=== PATIENT | female | born 1985 | race Caucasian/White ===

== ENCOUNTER → 2020-01-03 12:56 | Outpatient (CLI) | payer OTHER, SELFPAY ==
[2020-01-03 14:19] LABS: Add Manual Diff / Slide Review NO; Basophils Absolute Auto 0 /uL (0-100); Basophils Percent Auto 0.3 % (0-2); Eosinophils Absolute Auto 100 /uL (0-450); Eosinophils Percent Auto 0.9 % (2-4); Hematocrit 41.6 % (36-46); Hemoglobin 14.4 g/dL (12.0-16.0); Lymphocytes Absolute Auto 2500 /uL (1100-4500); Mean Corpuscular HGB Conc 34.6 % (30-36); Mean Corpuscular Hemoglobin 31.7 PG (26-34); Mean Corpuscular Volume 91.7 fL (80-100); Monocytes Absolute Auto 1400 /uL (0-900); Monocytes Percent Auto 13.5 % (3-14); Neutrophils Absolute Auto 6300 /uL (1500-7000); Neutrophils Percent Auto 61.3 % (50-75); Platelet Count 285 X10^3/uL (150-400); Red Blood Cell Count 4.54 X10^6/uL (4.0-5.2); Red Cell Distribution Width 12.7 % (11.6-14.8); White Blood Cell Count 10.4 X10^3/uL (4.5-11.0)
[2020-01-03 16:02] LABS: Free T4, Direct Thyroxine 0.99 ng/dL (0.78-2.19)
[2020-01-03 16:16] LABS: Thyroid Stimulating Hormone 5.26 uIU/mL (0.47-4.68)
[2020-01-03 16:30] LABS: Hepatitis B Surface Antigen NEGATIVE s/c (NEGATIVE); Rubella Antibody IgG 51.2 IU/mL (>15)
[2020-01-03 16:49] LABS: HIV 1 & 2 Ab/Ag 4th Gen Combo NEGATIVE (NEGATIVE); Hep C Virus Ab w/Reflex Quant NEGATIVE s/c (NEGATIVE)
[2020-01-03 17:38] LABS: Appearance Urine UA SL CLOUDY; Bilirubin Urine UA NEGATIVE (NEGATIVE); Color Urine UA YELLOW; Glucose Urine UA NEGATIVE (Negative); Ketones Urine UA NEGATIVE (NEGATIVE); Leukocyte Esterase Urine UA NEGATIVE (NEGATIVE); Nitrite Urine UA NEGATIVE (Negative); Occult Blood Urine UA 2+ (Negative); Protein Urine UA NEGATIVE (Negative); Specific Gravity Urine UA >=1.030 (1.000-1.035); Urobilinogen Urine UA 0.2 E.U./dL (0.2)
[2020-01-03 18:19] LABS: Bacteria Urine Moderate (10-30); RBC Urine 0-1/HPF (0-5/HPF); Squamous Epithelial Cell Urine 10-30 /HPF (0-5/HPF); WBC Urine 1-5/HPF (0-5/HPF)
[2020-01-04 04:39] LABS: RPR Screen Non Reactive (Non Reactive)
[2020-01-04 07:40] LABS: Varicella IgG Antibody 1944 index (Immune >165)
== END ==
PROVIDERS: PCP Specialist; Referring Provider Specialist; Visit Provider Specialist
DX: Z34.01 Encounter for supervision of normal first pregnancy, first trimester (principal); E03.9 Hypothyroidism, unspecified
CPT/HCPCS: 36415; 80055; 81003; 81015; 84439; 84443; 86787; 86803; 86850; 86900; 86901; 87086; 87389

== ENCOUNTER → 2020-03-13 11:00 | Outpatient (CLI) | payer OTHER, MEDICAID, SELFPAY ==
[2020-03-13 13:41] LABS: Free T4, Direct Thyroxine 0.98 ng/dL (0.78-2.19)
[2020-03-13 13:55] LABS: Thyroid Stimulating Hormone 1.49 uIU/mL (0.47-4.68)
[2020-03-15 21:16] LABS: AFP, Serum 53.8 ng/mL (.); Calc Gestational Age Ultrasound (.); Estriol, Free 1.92 ng/mL (.); Inhibin A, Dimeric 271.12 pg/mL (.); Inhibin A, MoM 1.59 (.); Maternal Ethnicity Caucasian (.); Maternal Weight 139 lbs (.); Number of Fetuses No (.); OSBR Risk 1 IN 4034 (.); Results Report (.); Test Results *Screen Negative* (.); hCG, MoM 2.66 (.); hCG, Serum 94934 mIU/mL (.)
== END ==
PROVIDERS: PCP Specialist; Referring Provider Specialist; Visit Provider Specialist
DX: Z34.02 Encounter for supervision of normal first pregnancy, second trimester (principal); E03.9 Hypothyroidism, unspecified; Z3A.16 16 weeks gestation of pregnancy
CPT/HCPCS: 36415; 82105; 82677; 84439; 84443; 84702; 86336

== ENCOUNTER → 2020-04-10 12:15 | Outpatient (CLI) | payer OTHER, MEDICAID, SELFPAY ==
--- NOTE | 2020-04-10 12:16 | DI.US.S_ITS ---
PROCEDURE: US OB >= 14 WEEKS FETUS INDICATIONS: 20 week anatomy scan OUTSIDE/PRIOR DATING DATA: Last menstrual period (LMP): 11/09/19 . LMP-based estimated date of delivery (MICHELLE): 08/15/20 . First dating scan (date and location): 01/03/[address] Garcia . Estimated date of delivery (MICHELLE) from first dating scan: 08/22/20 . TECHNIQUE: Real-time scanning was performed of the fetus, with image documentation and biometric measurements. Endovaginal scanning: Not needed COMPARISON: [facility], , OB >= 14 WEEKS FETUS, 03/13/2020, 10:51. [facility], , OB >= 14 WEEKS FETUS, 01/03/2020, 12:38. FINDINGS: General: A single living intrauterine gestation is present. Presentation: Vertex Placenta: Placental position is anterior , without previa. Amniotic fluid index: 12.2 cm, normal range is 5-24 cm. heart rate: 131 beats per minute. Maternal cervical canal: 4.3 cm long. Normal lower limit is 2.5 cm. biometrics: Biparietal diameter: 5.1 cm, 21 weeks 3 days Head circumference: 18.3 cm, 20 weeks 5 days Abdominal circumference: 16.7 cm, 21 weeks 5 days Femur length: 3.6 cm, 21 weeks 4 days Estimated gestational age from initial scan: 20 weeks 6 days Composite gestational age from present scan: 21 weeks 3 days Estimated weight and percentile: 429 g, 79th percentile Measurement variability for biometric dating: +/- 7 days from 14 weeks to 15 weeks 6 days gestation, +/- 10 days from 16 weeks to 21 weeks 6 days gestation, +/- 2 weeks from 22 weeks to 27 weeks 6 days gestation, +/- 3 weeks for 28 weeks gestation or later. weight reference: 4500 g or EFW >90/95% is considered macrosomia or large for gestational age. EFW <10% is small for gestational age. EFW 5% or less is considered intra-uterine growth restriction. Anatomic survey: Neuro: Ventricles are non-dilated at less than 10 mm. Cisterna magna is normal at 3-11 mm. Cerebellum is normal in size and morphology. Nuchal skin fold: Normal at less than 6 mm between 14-21 weeks gestational age. Face: Nose and lips, facial profile are normal. Spine: No evidence for spina bifida. Heart: 4-chambered heart is present, with normal ventricular outflow tracts. Diaphragm: Diaphragm is intact. Stomach: Left-sided stomach is present. Kidneys: No hydronephrosis. Normal is less than 5 mm in 2nd trimester, less than 7 mm in 3rd trimester. Cord: 3-vessel cord has orthotopic insertion. Bladder: Normal in size. Extremities: All 4 extremities identified. IMPRESSION: Appropriate interval growth, no anomaly seen. The delivery date is projected to be centered on 08/22/20. Dictated by: Conor Kowalski M.D. on 04/10/2020 at 14:14 Approved by: Conor Kowalski M.D. on 04/10/2020 at 14:17
== END ==
PROVIDERS: PCP Physician Assistant; Referring Provider Specialist; Visit Provider Specialist
DX: Z34.02 Encounter for supervision of normal first pregnancy, second trimester (principal); Z3A.21 21 weeks gestation of pregnancy
CPT/HCPCS: 76811

== ENCOUNTER → 2020-05-15 10:50 | Outpatient (CLI) | payer OTHER, MEDICAID, SELFPAY ==
[2020-05-15 12:52] LABS: Hematocrit 34.7 % (36-46); Hemoglobin 11.7 g/dL (12.0-16.0)
[2020-05-15 13:20] LABS: GTT (PREG) 1 Hour PP 50gm Dose 117 mg/dL (76-139)
[2020-05-15 13:31] LABS: Free T4, Direct Thyroxine 0.59 ng/dL (0.78-2.19)
[2020-05-15 13:45] LABS: Thyroid Stimulating Hormone 2.01 uIU/mL (0.47-4.68)
== END ==
PROVIDERS: PCP Physician Assistant; Referring Provider Specialist; Visit Provider Specialist
DX: Z34.02 Encounter for supervision of normal first pregnancy, second trimester (principal); E03.9 Hypothyroidism, unspecified; Z3A.25 25 weeks gestation of pregnancy
CPT/HCPCS: 36415; 82950; 84439; 84443; 85014; 85018

== ENCOUNTER 2020-07-18 12:07 | Observation (INO) | payer OTHER, MEDICAID, SELFPAY ==
[2020-07-18 13:47] LABS: Appearance Urine UA CLEAR; Bilirubin Urine UA NEGATIVE (NEGATIVE); Color Urine UA YELLOW; Glucose Urine UA NEGATIVE (Negative); Ketones Urine UA NEGATIVE (NEGATIVE); Leukocyte Esterase Urine UA NEGATIVE (NEGATIVE); Nitrite Urine UA NEGATIVE (Negative); Occult Blood Urine UA TRACE-INTACT (Negative); Protein Urine UA NEGATIVE (Negative); Specific Gravity Urine UA 1.015 (1.000-1.035); Urobilinogen Urine UA 0.2 E.U./dL (0.2); WBC Urine None Seen (0-5/HPF)
[2020-07-18 14:02] LABS: Amorphous Sediment Urine 1+; Bacteria Urine Occasional (0-1); Culture Indicated Urine Cult Not Indicated; RBC Urine 0-1/HPF (0-5/HPF); Squamous Epithelial Cell Urine 1-5 /HPF (0-5/HPF)
[2020-07-18] MEDS: LACTATED RINGERS 1,000 ML 1000 ML IV (14:24)
[2020-07-18] MEDS: NIFEdipine 10 MG CAPSULE PO ×4 (14:24→15:33)
--- NOTE | 2020-07-18 16:12 | P.TNLD_ITS ---
Visit Information Visit Information Date of evaluation: 07/18/20 Primary OB Provider: Ofelia Garcia Reason for Evaluation: Yes pre-term labor Comments/Additional reasons for admission: Patient is 35 week 1 para 0 who comes in complaining of contractions and possible rupture membranes. Vital Signs Vital Signs: Blood pressure 124/49, pulse 77, temperature 98.6? [facility] Medical History (Updated 07/18/20 @ 17:21 by Ofelia Garcia MD) 35 weeks gestation of Abnormal Pap smear of cervix (~2013) Acute recurrent streptococcal tonsillitis (~2018) Anxiety Chicken pox HSV-1 (herpes simplex virus 1) infection Hypothyroidism (acquired) Kidney stone (~2014) Sprain of medial collateral ligament of left knee, initial encounter (~2019) Surgical History (Updated 02/05/20 @ 19:56 by Estela Heath) Anesthesia H/O colposcopy with cervical biopsy (~2013) H/O wisdom tooth extraction History of laparoscopic cholecystectomy (~2012) Family History (Updated 02/05/20 @ 19:58 by Estela Heath) Mother Diabetes mellitus Depression AA (alcohol abuse) Smoker Hypothyroid Hypertension Mental health problem Father No problems noted. Grandfather H/O heart bypass surgery Diabetes mellitus Grandmother Cancer Breast cancer Grandfather Blind Diabetes mellitus History of heart disease Grandmother No problems noted. Family/Other Hypothyroid Family/Other Breast cancer Cancer Social History marital status: (Boyfriend of X 1 year) number of children: 0 household members: significant other lives independently: Yes pets and animals: Yes (X 3 cats : aware now) education level: high school occupational status: employed (hurt her knee and currently working part-time) current occupational exposures/hazards: Yes Previous occupational history: [employer] needs: No Smoking Status: Former smoker (Cigarettes : quit age 21) Tobacco: How many years used: 5 second hand exposure: No alcohol intake: never (stopped with gallbladder issues ) substance use type: does not use and marijuana (recreational use : stopped with diagnosis) Review of Systems Review of Systems Narrative: Patient has been on and off having cramping that worsened today. She had a gush of fluid that she was unclear if it was leakage of fluid. No bleeding. No headaches. Good movement. ROS: Yes All systems reviewed with the patient and are negative except as otherwise documented Exam Narrative Exam Narrative: Patient's abdomen is soft, with trace lower abdominal tenderness. Extremities without edema and nontender. Objective Labs Labs: Laboratory Results - last 24 hr 07/18/20 13:04 Urine Color Yellow Urine Appearance Clear Urine pH 7.0 Ur Specific [place] 1.015 Urine Protein Negative Urine Glucose (UA) Negative Urine Ketones Negative Urine Occult Blood Trace-intact Urine Nitrate Negative Urine Bilirubin Negative Urine Urobilinogen 0.2 Ur Leukocyte Esterase Negative Urine RBC 0-1/hpf Urine WBC None seen Ur Squamous Epith Cells 1-5 /hpf D Amorphous Sediment 1+ Urine Bacteria Occasional (0-1) D Ur Culture Indicated? Cult not indicated Evaluation Evaluation Baseline heart rate: 130 Variability: Moderate (11-25) monitor accelerations: Present monitor decelerations: Absent Contraction Frequency (minutes): 5 Uterine Contraction Intensity: Moderate Category of Tracing: Reactive Status: Category l Cervical dilation (cm): 0 Cervical effacement (%): 90 station: -3 Laboratory results: Laboratory Tests 07/18/20 13:04 Urine Color Yellow Urine Appearance Clear Urine pH 7.0 Ur Specific [place] 1.015 Urine Protein Negative Urine Glucose (UA) Negative Urine Ketones Negative Urine Occult Blood Trace-intact Urine Nitrate Negative Urine Bilirubin Negative Urine Urobilinogen 0.2 Ur Leukocyte Esterase Negative Urine RBC 0-1/hpf Urine WBC None seen Ur Squamous Epith Cells 1-5 /hpf D Amorphous Sediment 1+ Urine Bacteria Occasional (0-1) D Ur Culture Indicated? Cult not indicated Diagnosis, Plan/Disposition Final Diagnosis (1) Premature labor: Status: Acute (2) 35 weeks gestation of : Status: Acute Plan/Disposition Plan: Patient arrived on Labor and delivery in what appeared to be labor. She did not have rupture membranes. There was no evidence of UTI. Patient's contractions decreased with nifedipine and IV fluids. Patient was given betamethasone 12 mg. Patient was discharged to the local hotel rather than returning to the [facility] overnight. Patient is to return tomorrow afternoon to Labor and delivery for monitoring and a repeat betamethasone shot. Precautions reviewed with the patient. Discussed options that if she does deliver prematurely she may be able to fit the baby vaginally. She is agreeable to be e valuated at that time to see what her likelihood of being able to deliver vaginally without significant damage to her tailbone. Group B strep culture was performed. OB Disposition: home (Local hotel)
[2020-07-18] MEDS: BETAMETHASONE 30 MG/5 ML MDV 12 MG IM (16:13)
[2020-07-19 18:00] LABS: Strep Grp B PCR NEG for Grp B Strep
== END 2020-07-18 17:00 | disposition home or self-care (01) ==
PROVIDERS: Admitting Provider Specialist; PCP Physician Assistant; Referring Provider Specialist; Visit Provider Specialist
DX: O47.03 False labor before 37 completed weeks of gestation, third trimester (principal); N89.8 Other specified noninflammatory disorders of vagina; Z3A.35 35 weeks gestation of pregnancy
CPT/HCPCS: 59025; 59050; 81001; 84112; 87653; 96360; 96372; G0378; G0379; J0702

== ENCOUNTER 2020-07-19 15:52 | Outpatient (CLI) | payer OTHER, MEDICAID, SELFPAY ==
--- NOTE | 2020-07-19 16:20 | P.TNLD_ITS ---
Visit Information Visit Information Date of evaluation: 07/19/20 Primary OB Provider: Ofelia Garcia Reason for Evaluation: Yes pre-term labor [facility] Medical History (Updated 07/18/20 @ 17:21 by Ofelia Garcia MD) 35 weeks gestation of Abnormal Pap smear of cervix (~2013) Acute recurrent streptococcal tonsillitis (~2018) Anxiety Chicken pox HSV-1 (herpes simplex virus 1) infection Hypothyroidism (acquired) Kidney stone (~2014) Sprain of medial collateral ligament of left knee, initial encounter (~2019) Surgical History (Updated 02/05/20 @ 19:56 by Estela Heath) Anesthesia H/O colposcopy with cervical biopsy (~2013) H/O wisdom tooth extraction History of laparoscopic cholecystectomy (~2012) Family History (Updated 02/05/20 @ 19:58 by Estela Heath) Mother Diabetes mellitus Depression AA (alcohol abuse) Smoker Hypothyroid Hypertension Mental health problem Father No problems noted. Grandfather H/O heart bypass surgery Diabetes mellitus Grandmother Cancer Breast cancer Grandfather Blind Diabetes mellitus History of heart disease Grandmother No problems noted. Family/Other Hypothyroid Family/Other Breast cancer Cancer Social History marital status: (Boyfriend of X 1 year) number of children: 0 household members: significant other lives independently: Yes pets and animals: Yes (X 3 cats : aware now) education level: high school occupational status: employed (hurt her knee and currently working part-time) current occupational exposures/hazards: Yes Previous occupational history: [employer] needs: No Smoking Status: Former smoker (Cigarettes : quit age 21) Tobacco: How many years used: 5 second hand exposure: No alcohol intake: never (stopped with gallbladder issues ) substance use type: does not use and marijuana (recreational use : stopped with diagnosis) Evaluation Evaluation Baseline heart rate: 125 Variability: Average (6-10) monitor accelerations: Present monitor decelerations: Absent Contraction Frequency (minutes): 0 Category of Tracing: Reactive Status: Category l Cervical dilation (cm): 0 Cervical effacement (%): 80 station: -3 Diagnosis, Plan/Disposition Final Diagnosis (1) 35 weeks gestation of : Status: Acute (2) Premature labor: Status: Acute Plan/Disposition Plan: No change in the patient's cervix and not actively filipe. Patient given 2nd dose of betamethasone okay for her to return. Precautions reviewed with the patient. OB Disposition: home
[2020-07-19] MEDS: BETAMETHASONE 30 MG/5 ML MDV 12 MG IM (16:30)
== END 2020-07-19 16:45 | disposition home or self-care (01) ==
LOC: LABOR 15:58 → OB 07-21 09:16
PROVIDERS: PCP Physician Assistant; Referring Provider Specialist; Visit Provider Specialist
DX: O60.03 Preterm labor without delivery, third trimester (principal); Z3A.35 35 weeks gestation of pregnancy
CPT/HCPCS: 59025; 96372; G0378; G0379; J0702

== ENCOUNTER 2020-08-03 09:23 | Observation (INO) | payer OTHER, MEDICAID, SELFPAY ==
--- NOTE | 2020-08-04 15:59 | P.TNLD_ITS ---
Visit Information Visit Information Date of evaluation: 08/03/20 Primary OB Provider: Ofelia Garcia Reason for Evaluation: Yes rule out labor Vital Signs Vital Signs: BP 125/83, P85, T 96.4 PFSH Medical History (Updated 08/04/20 @ 16:02 by Ofelia Garcia MD) Abnormal Pap smear of cervix (~2013) Acute recurrent streptococcal tonsillitis (~2018) Anxiety Chicken pox HSV-1 (herpes simplex virus 1) infection Hypothyroidism (acquired) Kidney stone (~2014) Sprain of medial collateral ligament of left knee, initial encounter (~2019) Surgical History (Updated 02/05/20 @ 19:56 by Estela Heath) Anesthesia H/O colposcopy with cervical biopsy (~2013) H/O wisdom tooth extraction History of laparoscopic cholecystectomy (~2012) Family History (Updated 02/05/20 @ 19:58 by Estela Heath) Mother Diabetes mellitus Depression AA (alcohol abuse) Smoker Hypothyroid Hypertension Mental health problem Father No problems noted. Grandfather H/O heart bypass surgery Diabetes mellitus Grandmother Cancer Breast cancer Grandfather Blind Diabetes mellitus History of heart disease Grandmother No problems noted. Family/Other Hypothyroid Family/Other Breast cancer Cancer Social History marital status: (Boyfriend of X 1 year) number of children: 0 household members: significant other lives independently: Yes pets and animals: Yes (X 3 cats : aware now) education level: high school occupational status: employed (hurt her knee and currently working part-time) current occupational exposures/hazards: Yes Previous occupational history: [employer] special [employer] needs: No Smoking Status: Former smoker (Cigarettes : quit age 21) Tobacco: How many years used: 5 second hand exposure: No alcohol intake: never (stopped with gallbladder issues ) substance use type: does not use and marijuana (recreational use : stopped with diagnosis) Review of Systems Review of Systems Narrative: Pt c/o regular contractions for about 5 hours. No leakage of fluid, no DSOUZA, scotomata, epigastric pain, GFM ROS: Yes All systems reviewed with the patient and are negative except as otherwise documented Evaluation Evaluation Baseline heart rate: 135 Variability: Moderate (11-25) monitor accelerations: Present monitor decelerations: Absent Contraction Frequency (minutes): 5 Uterine Contraction Intensity: Mild Category of Tracing: Reactive Status: Category l Cervical dilation (cm): 0 Cervical effacement (%): 90 station: -3 Diagnosis, Plan/Disposition Final Diagnosis (1) 37 weeks gestation of : Status: Acute (2) False labor: Status: Acute Plan/Disposition Plan: No change in cervix after walking for 1 hour and contractions decreased. [place] persisit and return for exam OB Disposition: home
== END 2020-08-03 12:50 | disposition home or self-care (01) ==
PROVIDERS: Admitting Provider Specialist; PCP Physician Assistant; Referring Provider Specialist; Visit Provider Specialist
DX: O47.1 False labor at or after 37 completed weeks of gestation (principal); Z3A.37 37 weeks gestation of pregnancy
CPT/HCPCS: 59025; 59050; G0378; G0379

== ENCOUNTER 2020-08-06 07:56 | Inpatient (IN) | payer OTHER, MEDICAID, SELFPAY ==
--- NOTE | 2020-08-06 | PATH_ITS ---
[facility] Accession Number: [id number] . 01 Material submitted: . fallopian tube - BILATERAL FALLOPIAN TUBES . 02 Diagnosis: Bilateral Fallopian Tubes, Bilateral Tubal Ligation: Complete cross-sections of segments of fallopian tube x2. Negative for atypia or malignancy. V 08/11/2020 1004 Local . 02 Electronically signed: . Juana Galvan MD, Pathologist NPI- [id number] . 01 Gross description: . The specimen is received in formalin, labeled bilateral fallopian tubes and consists of two fallopian tube segments measuring 0.6 cm in length by 0.6 cm in diameter and 1.0 cm in length by 0.6 cm in diameter. The serosa is pink-purple and smooth. Sectioning reveals a stellate lumen and a valentine mucosa. The specimen is serially sectioned and entirely submitted. . A1: shorter fallopian tube segment. A2: longer fallopian tube segment. (EA:[id number]) /MRV 08/08/2020 1053 Local . 02 Pathologist provided ICD-10: Z30.2 . 02 CPT . 017138 Performed at: 01 [facility] [address], [place], [place] [id number] MD James Sepulveda MD Phone: [phone] Performed at: 02 [facility] [address] [place], [place] [id number] MD Belle Garvey MD Phone: [phone]
[2020-08-06 08:12] VITALS: BP 128/57
--- NOTE | 2020-08-06 08:15 | PM.PREOP ---
Pre-operative Note COVID-19 COVID-19 status: Result pending Interval Note History & Physical reviewed/Exam performed by Physician: Yes Changes to H&P: No
[2020-08-06 08:21] LABS: Add Manual Diff / Slide Review NO; Basophils Absolute Auto 100 /uL (0-100); Basophils Percent Auto 0.5 % (0-2); Eosinophils Absolute Auto 100 /uL (0-450); Eosinophils Percent Auto 0.5 % (2-4); Hemoglobin 12.6 g/dL (12.0-16.0); Lymphocytes Absolute Auto 2800 /uL (1100-4500); Lymphocytes Percent Auto 15.9 % (25-40); Mean Corpuscular Hemoglobin 31.3 PG (26-34); Mean Corpuscular Volume 92.3 fL (80-100); Monocytes Absolute Auto 2500 /uL (0-900); Monocytes Percent Auto 14.6 % (3-14); Neutrophils Absolute Auto 11900 /uL (1500-7000); Neutrophils Percent Auto 68.5 % (50-75); Platelet Count 212 X10^3/uL (150-400); Red Blood Cell Count 4.01 X10^6/uL (4.0-5.2); Red Cell Distribution Width 13.6 % (11.6-14.8); White Blood Cell Count 17.3 X10^3/uL (4.5-11.0)
--- NOTE | 2020-08-06 08:45 | SUR.OPER ---
Supine on Padded OR bed, head on pillow, safety belt at thigh, arms secured on padded arm boards at <90 degrees abduction. Bump under right buttock. Legs uncrossed with pillow under knees, gel pad to heels, tape over blanket to lower legs.
--- NOTE | 2020-08-06 08:47 | PM.OBHP.1 ---
OB HPI Date/Time Date of admission: 08/06/20 Date Patient Seen: 08/06/20 Time Patient Seen: 08:47 History of Present Condition Chief complaint: labor : 1 Para: 0 Estimated Date of Delivery: 08/22/20 Estimated Gestational Age (weeks): 37 Narrative: Geeta Barba is a 35 year old female admitted in active labor with planned section for contracted pelvis and tubal ligation for sterilization Indications Operative indications ( section): cephalopelvic disproportion (Contracted pelvis) History of Present care: good care, initiated at week # (6), number of visits (10) and pounds weight gain (48) Dating criteria: LMP confirmed by 1st trimester US Ultrasounds: normal mid trimester US Obstetrical complications: none Medical complications: none Preadmission Labs Blood type: O (+) positive -: Antibody screen: negative, GBS status: negative, HBsAG: negative, HIV: negative and RPR/VDLR: negative -: Chlamydia screen: not detected and Gonorrhea screen: not detected -: Rubella: immune and Varicella: immune HCAB: negative Quad screen: Normal 1 hr GTT: 117 Evaluation Evaluation Baseline heart rate: 130 Variability: Moderate (11-25) monitor accelerations: Present monitor decelerations: Absent Contraction Frequency (minutes): 2 Uterine Contraction Intensity: Strong/Firm Category of Tracing: Reactive Status: Category l Cervical dilation (cm): 4 Cervical effacement (%): 100 station: -2 Laboratory results: Laboratory Tests 08/06/20 08:00 WBC 17.3 H RBC 4.01 Hgb 12.6 Hct 37.0 MCV 92.3 MCH 31.3 MCHC 34.0 RDW 13.6 Plt Count 212 Neut % (Auto) 68.5 Lymph % (Auto) 15.9 L [place] % (Auto) 14.6 H Eos % (Auto) 0.5 L Baso % (Auto) 0.5 Neut # (Auto) 97657 H Lymph # (Auto) 2800 [place] # (Auto) 2500 H Eos # (Auto) 100 Baso # (Auto) 100 PFSH Medical History (Updated 08/05/20 @ 11:12 by Ofelia Garcia MD) Abnormal Pap smear of cervix (~2013) Acute recurrent streptococcal tonsillitis (~2018) Anxiety Chicken pox HSV-1 (herpes simplex virus 1) infection Hypothyroidism (acquired) Kidney stone (~2014) Sprain of medial collateral ligament of left knee, initial encounter (~2019) Surgical History (Updated 02/05/20 @ 19:56 by Estela Heath) Anesthesia H/O colposcopy with cervical biopsy (~2013) H/O wisdom tooth extraction History of laparoscopic cholecystectomy (~2012) Family History (Updated 02/05/20 @ 19:58 by Estela Heath) Mother Diabetes mellitus Depression AA (alcohol abuse) Smoker Hypothyroid Hypertension Mental health problem Father No problems noted. Grandfather H/O heart bypass surgery Diabetes mellitus Grandmother Cancer Breast cancer Grandfather Blind Diabetes mellitus History of heart disease Grandmother No problems noted. Family/Other Hypothyroid Family/Other Breast cancer Cancer Social History marital status: (Boyfriend of X 1 year) number of children: 0 household members: significant other lives independently: Yes pets and animals: Yes (X 3 cats : aware now) education level: high school occupational status: employed (hurt her knee and currently working part-time) current occupational exposures/hazards: Yes Previous occupational history: [employer] needs: No Smoking Status: Never smoker Tobacco: How many years used: 5 second hand exposure: No alcohol intake: never (stopped with gallbladder issues ) substance use type: does not use and marijuana (recreational use : stopped with diagnosis) Meds Home Medications and Allergies Home Medications Medication Instructions Recorded Confirmed Type prenat.vits,elda,jvf-ipxl-ohkct 1 tab PO DAILY 01/01/20 08/06/20 History levothyroxine 100 mcg tablet 100 mcg PO DAILY #30 tab 05/15/20 08/06/20 Rx omeprazole 40 mg capsule,delayed 40 mg PO DAILY #30 cap 05/15/20 08/06/20 Rx release nifedipine 30 mg PO DAILY #14 tab 07/18/20 08/06/20 Rx nifedipine See Rx Instructions .ROUTE 07/18/20 08/06/20 Rx .COMPLEX #12 cap Allergies Allergy/AdvReac Type Severity Reaction Status Date / Time No Known Drug Allergies Allergy Verified 08/06/20 08:13 Review of Systems Review of Systems Narrative: Patient has spontaneous rupture membranes approximately 5 hours ago with onset of contractions. Good movement. No headaches, scotomata, epigastric pain. ROS: Yes All systems reviewed with the patient and are negative except as otherwise documented Exam Vital Signs (past 8 hours): Blood pressure 128/57, pulse 91, temperature 96.5- 08/06/20 08:12 Blood Pressure 128/57 L Narrative Exam Narrative: HEENT exam within normal limits. Lungs are clear to auscultation percussion. Heart is regular rate and rhythm no S3-S4 or murmurs. Abdomen is gravid. Fetus is vertex. Extremities nontender. Objective Labs Result Diagrams: 08/06/20 08:00 Labs: Laboratory Results - last 24 hr 08/06/20 08:00 WBC 17.3 H RBC 4.01 Hgb 12.6 Hct 37.0 MCV 92.3 MCH 31.3 MCHC 34.0 RDW 13.6 Plt Count 212 Neut % (Auto) 68.5 Lymph % (Auto) 15.9 L [place] % (Auto) 14.6 H Eos % (Auto) 0.5 L Baso % (Auto) 0.5 Neut # (Auto) 74234 H Lymph # (Auto) 2800 [place] # (Auto) 2500 H Eos # (Auto) 100 Baso # (Auto) 100 Assessment and Plan Assessment and Plan Assessment and Plan narrative: 1 para 0 EDC 08/22 at 37 week gestation with spontaneous rupture membranes active labor. Patient had planned section for contracted pelvis and tubal ligation for sterilization
[2020-08-06] MEDS: fentaNYL 100 MCG/2 ML INJ 50 MCG IV (09:03)
[2020-08-06 09:11] LABS: COVID19 - ADMIT (NP swab/PCR) Negative (Negative)
[2020-08-06] MEDS: CEFAZOLIN 2 GM/100 ML FROZ.PIGGY IV (09:18)
[2020-08-06] MEDS: ACETAMINOPHEN IV 1,000 MG/100 ML VIAL 400 MG IV (09:30)
--- NOTE | 2020-08-06 09:51 | SUR.OPER ---
VIABLE MALE INFANT DELIVERED AT 0943. CORD BLOOD AND PLACENTA TO OB WITH RN.
[2020-08-06] MEDS: LACTATED RINGERS 1,000 ML 100 ML IV ×2 (10:01→19:32)
[2020-08-06 10:25] VITALS: BP 105/52; PULSE 96; RESP 14; TEMP 36.6; O2SAT 98
--- NOTE | 2020-08-06 10:25 | P.OP_ITS ---
Operative Date/Time/Diagnoses Date of procedure: 08/06/20 Time of procedure: 10:25 Pre-op diagnosis: 37 week gestation with planned section for contracted pelvis and wish for sterilization who presented in active labor with spontaneous rupture membranes Post-op diagnosis: same Procedure & Clinicians Procedure: Primary low-transverse section and bilateral tubal ligation Same procedure as scheduled: Yes Indications: Contracted pelvis with wish for sterilization who presented in active labor with spontaneous rupture membranes Surgeon: Ofelia Garcia Inspector Casing: Blanca Ortiz Click Yes if Unassisted: No Anesthesia Type: Spinal Operative Notes Findings: Normal tubes, ovaries, uterus. Viable male with Apgars of 7 and 9 weighing 6 lb 8.8 oz Closure Type: primary Specimen(s): other (Bilateral tubal sections) Applied: catheter (Rose) Estimated Blood Loss (mL): 350 Blood products transfused: none Procedure in detail: The patient was brought to the operating room where she underwent a spinal for anesthesia. She was placed in a supine position with a left lateral tilt. A Rose catheter was placed. Pulsatile stockings were placed and functional throughout the case. 2 g of Ancef were given IV prior to the incision. Warming was in place. The patient was prepped and draped in usual sterile fashion. A low transverse incision was made with a scalpel and the incision was carried down to the fascial layer which was incised transversely with scissors. The assistant professor of dietetics did her side of the incision. The midline attachments are superiorly and inferiorly. Some bleeding was controlled Bovie. The rectus muscles were in the midline and the peritoneal incision was made with no damage to internal structures. The peritoneum was incised and superiorly and inferiorly. The incision was stretched with the surgeon and assistant professor of dietetics placing traction. Bladder blade was placed and a bladder flap was developed and the bladder held away from the lower uterine segment. An incision was made in the uterus with the scalpel and the incision was extended with stretching. The head was elevated out of the abdomen and with fundal pressure by the assistant professor of dietetics with assistance by the vacuum extractor the baby was delivered. The was bulb suctioned for clear fluid and handed off to the warmer. Cord blood was collected. The placenta delivered spontaneously with traction. The uterus was cleaned with clean laps. The uterine incision was closed in 2 layers of 0 chromic suture the first a running locking layer the second an imbricating layer. The assistant professor of dietetics was helping to expose the incision. The bladder peritoneum was repaired with 2-0 Vicryl suture. The gutters were cleaned of any remaining fluids and ovaries and tubes were observed to be normal. Adequate hemostasis was noted. The left fallopian tube The was grasped with a Dominick and tied off x2 with 0 plain suture. The same procedure was performed with the right fallopian tube. The peritoneum was closed with 2-0 Vicryl suture. The fascia layer was closed with 0 Vicryl suture with 2 stitches. The assistant professor of dietetics repairing half the incision with helping to retract and expose the incision for the other half. The incision was irrigated and adequate hemostasis noted. The incision was closed with interrupted 3-0 Vicryl sutures and then a subcuticular stitch of 4-0 Vicryl suture. Steri- Strips were placed. An Aquacel dressing was placed. The uterus was massaged to remove any clots. The patient went to recovery room in good condition. Counts of instruments and sponges were correct. Dr. Ortiz was present throughout the case to assist with retraction, fundal pressure to deliver the infant, and suturing half the fascia. Complications: none Post-operative Condition: stable Disposition: other ( Center) Plan for aftercare: Routine post section
[2020-08-06 10:30] VITALS: BP 114/44; PULSE 93; RESP 14; O2SAT 98
--- NOTE | 2020-08-06 10:45 | SUR.PHASEI ---
report called to center at 1036, gave report to charge nurse, Santino, and she asked for us to wait for 10 min before taking pt. over. ongoing monitoring.
[2020-08-06] MEDS: KETOROLAC 30 MG/ML VIAL IV ×2 (15:57→22:03)
[2020-08-06] MEDS: ACETAMINOPHEN 325 MG TABLET 650 MG PO ×2 (16:37→22:03)
[2020-08-06] MEDS: OXYCODONE IR 5 MG TABLET PO (18:30)
[2020-08-07] MEDS: ACETAMINOPHEN 325 MG TABLET 650 MG PO ×4 (04:02→22:30)
[2020-08-07] MEDS: KETOROLAC 30 MG/ML VIAL IV (04:02)
[2020-08-07 05:42] LABS: Add Manual Diff / Slide Review NO; Basophils Absolute Auto 0 /uL (0-100); Basophils Percent Auto 0.3 % (0-2); Eosinophils Absolute Auto 100 /uL (0-450); Eosinophils Percent Auto 0.7 % (2-4); Hematocrit 32.7 % (36-46); Lymphocytes Absolute Auto 2200 /uL (1100-4500); Lymphocytes Percent Auto 14.3 % (25-40); Mean Corpuscular HGB Conc 33.7 % (30-36); Mean Corpuscular Hemoglobin 31.5 PG (26-34); Mean Corpuscular Volume 93.5 fL (80-100); Monocytes Absolute Auto 2500 /uL (0-900); Monocytes Percent Auto 15.8 % (3-14); Neutrophils Absolute Auto 10800 /uL (1500-7000); Neutrophils Percent Auto 68.9 % (50-75); Platelet Count 174 X10^3/uL (150-400); Red Cell Distribution Width 13.5 % (11.6-14.8); White Blood Cell Count 15.6 X10^3/uL (4.5-11.0)
[2020-08-07] MEDS: LEVOTHYROXINE 100 MCG TABLET PO (06:01)
[2020-08-07] MEDS: OXYCODONE IR 5 MG TABLET PO ×4 (06:05→20:38)
[2020-08-07] MEDS: DOCUSATE 250 MG CAPSULE PO (09:00)
[2020-08-07] MEDS: LANOLIN OINT 7 GM 1 APPLIC TOP (09:56)
[2020-08-07] MEDS: IBUPROFEN 600 MG TABLET PO ×2 (11:36→18:27)
[2020-08-07 16:04] VITALS: TEMP 37
[2020-08-07 16:05] VITALS: TEMP 37
--- NOTE | 2020-08-07 17:40 | P.PNOB_ITS ---
Subjective - OB Subjective Patient comments: pain well controlled and tolerating diet [place] baby status: doing well and nursing well [place] feeding status: exclusively breast feeding Date Patient Seen: 08/07/20 Time Patient Seen: 12:30 Interval history: Patient is postoperative day 1 section with tubal ligation for contracted pelvis and sterilization. Patient had her [address] ter removed and is able to ambulate and urinate. Pain is under control. She denies any nausea or vomiting. No headaches, scotomata, epigastric pain. Exam Vital Signs (past 8 hours): - 08/07/20 16:04 08/07/20 16:05 Temperature 98.6 F 98.6 F Oxygen Delivery Method Room Air Narrative Exam Narrative: Abdomen is soft, nontender. Uterus is firm, at U -1, nontender. Dressing is clean, dry, intact. Extremities without edema and nontender. Mild lochia. Objective Labs Result Diagrams: 08/07/20 05:25 Labs: Laboratory Results - last 24 hr 08/07/20 05:25 WBC 15.6 H RBC 3.50 L Hgb 11.0 L Hct 32.7 L MCV 93.5 MCH 31.5 MCHC 33.7 RDW 13.5 Plt Count 174 Neut % (Auto) 68.9 Lymph % (Auto) 14.3 L [place] % (Auto) 15.8 H Eos % (Auto) 0.7 L Baso % (Auto) 0.3 Neut # (Auto) 30975 H Lymph # (Auto) 2200 [place] # (Auto) 2500 H Eos # (Auto) 100 Baso # (Auto) 0 Assessment & Plan Assessment and Plan (1) Delivery by section using low vertical uterine incision: Status: Acute (2) Sterilization: Status: Acute Plan day: 1 plan OB: routine postop care Time Spent With Patient Time: Total time spent is greater than 50% in coordination of care (as documented) at patient's floor/unit and/or counseling patient: Time with patient: less than 15 minutes
[2020-08-07 18:27] VITALS: TEMP 37.1
[2020-08-08] MEDS: IBUPROFEN 600 MG TABLET PO ×2 (00:37→08:49)
[2020-08-08] MEDS: OXYCODONE IR 5 MG TABLET PO ×2 (03:39→11:33)
--- NOTE | 2020-08-08 08:36 | P.DS_ITS ---
Discharge Providers Provider Date of admission: 08/06/20 07:56 Discharge Date: 08/08/20 Primary care physician: Shandra Nicholas PA-C Consults: 08/06/20 11:17 Consult to Machine Maintenance Mechanic Routine Comment: Discharge provider: Ofelia Garcia MD Summary Hospital Course Date Patient Seen: 08/08/20 Time Patient Seen: 08:36 Diagnoses: Planned section for contracted pelvis admitted in active labor for section and wish for sterilization by tubal ligation Hospital Course: Patient arrived on Labor and delivery in active labor. She underwent a low- transverse section and bilateral tubal ligation on 08/06/2020. Patient is passing gas. She is urinating well and ambulatory. She is breast-feeding without difficulty. She denies headaches, scotomata, epigastric pain. Peripartum Data Delivery Method: Section (For contracted pelvis) Procedures: Primary low-transverse section with bilateral tubal lig ation complications: none [place] 1: Gender: Male Disposition of : other (Baby is being held for bili lights for jaundice) Discharge Diagnosis (1) Delivery by section using low vertical uterine incision: Status: Acute (2) Sterilization: Status: Acute Status at Discharge Cognitive/behavioral status at discharge: oriented Functional status at discharge: independent ambulation Overall status at discharge: patient is progressing back to baseline Time Spent with Patient Time attestation: Total time spent providing and/or coordinating discharge services: Time spent: Less than 30 minutes Objective Labs Result Diagrams: 08/07/20 05:25 Exam Vital Signs (past 8 hours): Blood pressure 114/75, pulse of 80, temperature 98.2? Oxygen Delivery Method Room Air Narrative Exam Narrative: Abdomen is soft, nontender. Uterus is firm, at U, appropriately tender. Dressing is clean, dry, intact. Extremities without edema and nontender. Patient is Rh positive, rubella immune, received Tdap in the 3rd trimester. Discharge Plan Discharge Plan Patient Disposition: Home Discharge orders & Medications Prescriptions: New ibuprofen 600 mg Tablet 600 mg PO Q6HR PRN (Reason: Fever/Mild Pain (1-3)) Qty: 30 RF: 0 oxycodone 5 mg Tablet 5 mg PO Q4HR PRN (Reason: Pain, Moderate (4-6)) Qty: 20 RF: 0 Continued levothyroxine 100 mcg tablet 100 mcg PO DAILY Qty: 30 RF: 2 prenat.vits,leda,rhd-nhrg-lfabm Tablet 1 tab PO DAILY RF: 0 Discontinued omeprazole 40 mg capsule,delayed release(DR/EC) 40 mg PO DAILY Qty: 30 RF: 3 nifedipine 30 mg tablet extended release 30 mg PO DAILY Qty: 14 RF: 0 nifedipine 10 mg capsule See Rx Instructions .ROUTE .COMPLEX Qty: 12 RF: 0 Follow up/Referrals: Ofelia Garcia MD [Physician] - 09/03/20 (August [address] Garcia for dressing removal September [address] Garcia for 6 week post check) Shandra Nicholas PA-C [Primary Care Provider] - Diet/Activity/Treatments Diet: Regular Activity: Nothing in vagina or lifting over 20 lb for 6 weeks Skin/Wound/Dressing Care Report to your healthcare provider any signs of infection, such as:: chills, fever, increased pain and unusual redness Visit Report/Discharge Packet Stand Alone Forms: Discharge: Care Discharge Data Primary Care Provider: Shandra Nicholas
[2020-08-08] MEDS: DOCUSATE 250 MG CAPSULE PO (08:48)
[2020-08-08] MEDS: LEVOTHYROXINE 100 MCG TABLET PO (08:48)
[2020-08-08] MEDS: ACETAMINOPHEN 325 MG TABLET 650 MG PO (08:48)
== END 2020-08-08 13:45 | disposition home or self-care (01) | DRG 783 ==
PROVIDERS: Admitting Provider Specialist; PCP Physician Assistant; Referring Provider Specialist; Visit Provider Specialist
PROC: 10D00Z1 Extraction of Products of Conception, Low, Open Approach (ICD-10-PCS; CPT 59514; principal; 2020-08-06 09:00)
DX: O65.0 Obstructed labor due to deformed pelvis (principal); O60.14X0 Preterm labor third trimester with preterm delivery third trimester, not applicable or unspecified; Z30.2 Encounter for sterilization; Z3A.37 37 weeks gestation of pregnancy; Z37.0 Single live birth; Z20.822 Contact with and (suspected) exposure to COVID-19
CPT/HCPCS: 36415; 59050; 59510; 59514; 85025; 86850; 86900; 86901; 87635; G0379; J0131; J0690; J1885; J2274; J2590; J3010